=== PATIENT | male | born 1975 | race Caucasian/White ===

== ENCOUNTER 2019-03-09 21:38 | Emergency (ER) | payer SELFPAY ==
[~2019-03-09] VITALS: Ht 175.3 cm; Wt 72.7 kg
--- NOTE | 2019-03-09 22:13 | NUR ---
PT HAS A LACERATION TO HIS LEFT CREASE OF THE LIP THAT EXTENDS DOWNWARD. DR. TREVINO INFORMED PT HE WILL NEED STITCHES. FAST EXAM NEGATIVE. PT FOR THE MOST PART IS ARGUMENTATIVE AND DOESN'T LISTEN AND WANTS TO ARGUE WITH WHAT CARE HE NEEDS, ETC.
[2019-03-09] MEDS ORDERED: LIDOcaine 1% W/epiNEPHrine 1:200,000 10ml vial IJ ONE (22:35)
[2019-03-09] MEDS ORDERED: TETanus/Pertussis (Acell)/Diphther VAC/PF (Tdap-Adult) 0.5ml syringe IMVAC ONE (22:35)
[2019-03-09] MEDS ORDERED: normal saline 1000ML IV soln IVB ONE (23:10)
[2019-03-09] MEDS ORDERED: phenobarbital inj 260 MG in normal saline 100ml IV soln 100 ML IV ONE (23:10)
[2019-03-09] MEDS ORDERED: magnesium oxide 400mg tablet PO ONE (23:10)
[2019-03-09] MEDS ORDERED: thiamine 100mg tablet PO ONE (23:10)
[2019-03-10 01:27] LABS: BASOPHILS # (AUTO) 0.1 X10'3 (0-0.2); BASOPHILS % (AUTO) 0.3 % (0-1); EOSINOPHILS % (AUTO) 0.1 % (0-6); HEMATOCRIT 45.4 % (42.0-52.0); HEMOGLOBIN 15.5 g/dl (14.0-17.9); LYMPHOCYTES # (AUTO) 1.3 X10'3 (1.1-4.8); MEAN CORPUSCULAR HGB CONC 34.2 g/dL (33.0-36.5); MEAN CORPUSCULAR VOLUME 93.5 FL (78-98); MEAN PLATELET VOLUME 8.8 FL (7.4-10.4); MONOCYTES # (AUTO) 2.1 X10'3 (0-0.9); MONOCYTES % (AUTO) 9.8 % (2-12); NEUTROPHILS # (AUTO) 17.5 X10'3 (1.8-7.7); NEUTROPHILS % (AUTO) 83.8 % (42-75); PLATELET COUNT 253 X10'3 (140-440); RED BLOOD COUNT 4.86 X10'6 (4.70-6.10); RED CELL DISTRIBUTION WIDTH 12.8 % (11.5-14.5); WHITE BLOOD COUNT 20.8 X10'3 (4.5-11.0)
[2019-03-10] MEDS ORDERED: phenobarbital inj 130 MG in normal saline 250ml IV soln 250 ML IV ONE (01:30)
[2019-03-10 01:36] LABS: ALANINE AMINOTRANSFERASE 90 U/L (12-78); ALBUMIN/GLOBULIN RATIO 1.3 (1.1-1.5); ALKALINE PHOSPHATASE 65 IU/L (46-116); ANION GAP 9 (8-16); ASPARTATE AMINO TRANSFERASE 81 U/L (10-37); BILIRUBIN,TOTAL 0.2 MG/DL (0.1-1.0); BLOOD UREA NITROGEN 12 MG/DL (7-18); BUN/CREATININE RATIO 11.8 (5.4-32.0); CALCIUM 8.5 MG/DL (8.5-10.1); CHLORIDE 109 MMOL/L (99-107); CREATININE 1.02 MG/DL (0.60-1.10); ETHANOL 0.179 GM/DL (0.0-0.010); GLUCOSE 113 MG/DL (70-104); SODIUM 147 MMOL/L (135-145); TOTAL CARBON DIOXIDE 29.5 MMOL/L (24-32); TOTAL PROTEIN 7.1 G/DL (6.4-8.2); eGFR 80 ML/MIN
[2019-03-10] MEDS ORDERED: HYDR-4353 PO (02:08)
[2019-03-10] MEDS ORDERED: ONDA4TAB6 PO (02:08)
[2019-03-10 02:35] VITALS: BP 138/68
[2019-03-10 02:59] LABS: PLATELET ESTIMATE NORMAL; TOTAL CELLS COUNTED 100
== END 2019-03-10 02:37 ==
LOC: ER 21:39
DX: S92.002A Unspecified fracture of left calcaneus, initial encounter for closed fracture (principal); S01.511A Laceration without foreign body of lip, initial encounter; S20.212A Contusion of left front wall of thorax, initial encounter; F10.129 Alcohol abuse with intoxication, unspecified; V49.88XA Car occupant (driver) (passenger) injured in other specified transport accidents, initial encounter; Y93.89 Activity, other specified; Y92.413 State road as the place of occurrence of the external cause; Y99.9 Unspecified external cause status; Y90.9 Presence of alcohol in blood, level not specified
CPT/HCPCS: 29515; 36415; 40650; 72192; 73610; 73630; 73700; 80053; 80320; 85025; 93005; 96365; 96366; 99284; J2560; J7030; 90715